=== PATIENT | male | born 1945 | race Caucasian/White ===

== ENCOUNTER 2024-10-02 08:12 | Outpatient (REF) | payer MEDICARE, SELFPAY ==
--- NOTE | 2024-10-02 08:23 | EMG_ITS ---
Bilateral tibial and peroneal motor studies were performed. Bilateral superficial peroneal and sural sensory studies were performed. Bilateral median and lateral mixed plantar sensory studies were performed. Tibial H-reflexes were obtained and paraspinal muscles were tested with needle. IMPRESSION: Moderately severe axonal sensory motor peripheral neuropathy. MD RENEE Hough/TERRI / [id number]
== END 2024-10-02 08:13 | disposition home or self-care (01) ==
LOC: HO.NEURO 08:12
PROVIDERS: PCP Internal Medicine; Visit Provider Internal Medicine
DX: R20.2 Paresthesia of skin (principal)
CPT/HCPCS: 95886; 95913